=== PATIENT | female | born 1995 | race African-American/Black ===

== ENCOUNTER 2018-01-17 00:46 | Inpatient (IN) | payer MEDICAID ==
[2018-01-17] MEDS ORDERED: Sodium Chloride 0.9% 2.5 ML Syringe FLUSH PRN (01:22)
[2018-01-17] MEDS ORDERED: Carboprost Tromethamine 250 MCG/1 ML Amp IM PRN (01:22)
[2018-01-17] MEDS ORDERED: Tranexamic Acid 1,000 MG in Sodium Chloride 0.9% 100 ML IV PRN (01:22)
[2018-01-17] MEDS ORDERED: Water For Irrigation,Sterile 1,000 ML Container IRR PRN (01:22)
[2018-01-17] MEDS ORDERED: Nalbuphine 10 MG/1 ML Vial IVPUSH PRN ×2 (01:22→18:59)
[2018-01-17] MEDS ORDERED: Misoprostol 25 MCG (1/4 of 100 MCG) Tab VAG PRN (01:22)
[2018-01-17] MEDS ORDERED: Lidocaine 1% 50 ML MDV INJECT PRN (01:22)
[2018-01-17] MEDS ORDERED: Sodium Chloride 0.9% 10 ML Syringe FLUSH PRN (01:22)
[2018-01-17] MEDS ORDERED: Butorphanol 1 MG/ML SDV IVPUSH PRN (01:22)
[2018-01-17] MEDS ORDERED: Misoprostol 200 MCG Tab PO PRN (01:22)
[2018-01-17] MEDS ORDERED: Terbutaline 1 MG/ML SDV SUBCUT PRN (01:22)
[2018-01-17] MEDS ORDERED: Methylergonovine 0.2 MG/1 ML Amp IM PRN (01:22)
[2018-01-17] MEDS ORDERED: Misoprostol 25 MCG (1/4 of 100 MCG) Tab VAG SCH (01:30)
[2018-01-17] MEDS ORDERED: Oxytocin/0.9 % Sodium Chloride 30 UNIT/500 ML BAG IV SCH ×2 (01:30)
[2018-01-17] MEDS: Lactated Ringers 1,000 ML IV SCH ×3 (07:03→12:00)
[2018-01-17] MEDS ORDERED: Ropivacaine 0.2% 2 MG/ML 20 ML SDV ONE (09:36)
[2018-01-17 09:45] LABS: CHLORIDE,CL 106 mmol/L (98-107); SODIUM,NA 138 mmol/L (136-145)
--- NOTE | 2018-01-17 10:06 | PCM.PREANE ---
Preanesthetic Assessment - Procedure Proposed Procedure: labor epidural induction polyhydramnios - Anesthesia/Transfusion/Family Hx Anesthesia History: No Prior Anesthesia Family History of Anesthesia Reaction: No - Review of Systems Other: Reports: None - Physical Assessment Height: 5 ft 4 in Weight: 104.78 kg ASA Class: 2 Mental Status: Alert & Oriented x3 Airway Class: Mallampati = 1 Dentition: Reports: Normal Dentition Thyro-Mental Finger Breadths: 3 Mouth Opening Finger Breadths: 3 ROM/Head Extension: Full - Lab Values: Laboratory Last Values WBC 10.63 K/uL (4.0-11.0) 01/17/18 09:10 RBC 4.48 M/uL (4.30-5.90) 01/17/18 09:10 Hgb 11.5 g/dL (12.0-16.0) L 01/17/18 09:10 Hct 35.4 % (36.0-46.0) L 01/17/18 09:10 MCV 79.0 fL (80.0-98.0) L 01/17/18 09:10 MCH 25.7 pg (27.0-32.0) L 01/17/18 09:10 MCHC 32.5 g/dL (31.0-37.0) 01/17/18 09:10 RDW Std Deviation 46.5 fl (28.0-62.0) 01/17/18 09:10 RDW Coeff of Nelson 16 % (11.0-15.0) H 01/17/18 09:10 Plt Count 217 K/uL (150-400) 01/17/18 09:10 MPV 10.90 fL (7.40-12.00) 01/17/18 09:10 Neut % (Auto) 69.4 % (48.0-80.0) 01/17/18 09:10 Lymph % (Auto) 20.7 % (16.0-40.0) 01/17/18 09:10 [place] % (Auto) 9.5 % (0.0-15.0) 01/17/18 09:10 Eos % (Auto) 0.3 % (0.0-7.0) 01/17/18 09:10 Baso % (Auto) 0.1 % (0.0-1.5) 01/17/18 09:10 Neut # (Auto) 7.4 K/uL (1.4-5.7) H 01/17/18 09:10 Lymph # (Auto) 2.2 K/uL (0.6-2.4) 01/17/18 09:10 [place] # (Auto) 1.0 K/uL (0.0-0.8) H 01/17/18 09:10 Eos # (Auto) 0.0 K/uL (0.0-0.7) 01/17/18 09:10 Baso # (Auto) 0.0 K/uL (0.0-0.1) 01/17/18 09:10 Nucleated RBC % 0.0 /100WBC 01/17/18 09:10 Nucleated RBCs # 0 K/uL 01/17/18 09:10 Sodium 138 mmol/L (136-145) 01/17/18 09:10 Potassium 4.1 mmol/L (3.5-5.1) 01/17/18 09:10 Chloride 106 mmol/L (98-107) 01/17/18 09:10 Carbon Dioxide 22.5 mmol/L (21.0-32.0) 01/17/18 09:10 BUN 8 mg/dL (7.0-18.0) 01/17/18 09:10 Creatinine 0.6 mg/dL (0.6-1.0) 01/17/18 09:10 Est Cr Clr Drug Dosing 127.00 mL/min 01/17/18 09:10 Estimated GFR (MDRD) > 60.0 ml/min 01/17/18 09:10 Glucose 77 mg/dL (74-106) 01/17/18 09:10 Uric Acid 6.0 mg/dL (2.6-7.2) 01/17/18 09:10 Calcium 8.6 mg/dL (8.5-10.1) 01/17/18 09:10 Total Bilirubin 0.3 mg/dL (0.2-1.0) 01/17/18 09:10 AST 25 IU/L (15-37) 01/17/18 09:10 ALT 27 IU/L (14-63) 01/17/18 09:10 Alkaline Phosphatase 111 U/L (46-116) 01/17/18 09:10 Total Protein 6.0 g/dL (6.4-8.2) L 01/17/18 09:10 Albumin 2.5 g/dL (3.4-5.0) L 01/17/18 09:10 Globulin 3.5 g/dL (2.0-3.5) 01/17/18 09:10 Albumin/Globulin Ratio 0.7 (1.3-2.8) L 01/17/18 09:10 Urine Color DARK YELLOW 01/17/18 08:05 Urine Appearance SLT CLOUDY 01/17/18 08:05 Urine pH 6.5 (5.0-8.0) 01/17/18 08:05 Ur Specific [place] 1.025 (1.001-1.035) 01/17/18 08:05 Urine Protein 100 mg/dL (NEGATIVE) 01/17/18 08:05 Urine Glucose (UA) NEGATIVE mg/dL (NEGATIVE) 01/17/18 08:05 Urine Ketones NEGATIVE mg/dL (NEGATIVE) 01/17/18 08:05 Urine Occult Blood MODERATE (NEGATIVE) 01/17/18 08:05 Urine Nitrite NEGATIVE (NEGATIVE) 01/17/18 08:05 Urine Bilirubin NEGATIVE (NEGATIVE) 01/17/18 08:05 Urine Urobilinogen 0.2 EU/dL (<2.0) 01/17/18 08:05 Ur Leukocyte Esterase NEGATIVE (NEGATIVE) 01/17/18 08:05 Urine RBC 14-16 (0-2/HPF) 01/17/18 08:05 Urine WBC 3-6 (0-5/HPF) 01/17/18 08:05 Ur Epithelial Cells FEW (NONE-FEW) 01/17/18 08:05 Urine Bacteria FEW (NEGATIVE) 01/17/18 08:05 Blood Type O POSITIVE 01/17/18 01:53 Antibody Screen NEGATIVE 01/17/18 01:53 - Allergies Allergies/Adverse Reactions: Allergies Allergy/AdvReac Type Severity Reaction Status Date / Time No Known Allergies Allergy Verified 01/17/18 01:17 - Blood Blood Available: Yes Product(s) Available: PRBC - Acknowledgements Anesthesia Type Planned: Epidural Pt an Appropriate Candidate for the Planned Anesthesia: Yes Alternatives and Risks of Anesthesia Discussed w Pt/Guardian: Yes Pt/Guardian Understands and Agrees with Anesthesia Plan: Yes PreAnesthesia Questionnaire - Past Health History Medical/Surgical History: Denies Medical/Surgical History 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: - SUBSTANCE USE Smoking Status *Q: Never Smoker Second Hand Smoke Exposure: No Recreational Drug Use History: No - CURRENT (IN HOUSE) MEDS Current Meds: Current Medications Butorphanol Tartrate (Stadol) 1 mg IVPUSH Q1H PRN PRN Reason: Pain Last Admin: 01/17/18 07:18 Dose: 1 mg Carboprost Tromethamine (Hemabate Ds) 250 mcg IM ASDIRECTED PRN PRN Reason: Post Hemorrhage Lactated Ringer's (Ringers, Lactated) 1,000 mls @ 150 mls/hr IV ASDIRECTED ZOEY Last Admin: 01/17/18 07:03 Dose: 150 mls/hr Oxytocin/Sodium Chloride (Oxytocin 30 Unit/500 Ml-Ns) 30 unit in 500 mls @ 999 mls/hr IV TITRATE ZOEY Oxytocin/Sodium Chloride (Oxytocin 30 Unit/500 Ml-Ns) 30 unit in 500 mls @ 2 mls/hr IV TITRATE ZOEY; Protocol Last Admin: 01/17/18 07:03 Dose: 2 munits/min, 2 mls/hr Tranexamic Acid 1,000 mg/ (Sodium Chloride) 110 mls @ 660 mls/hr IV ONETIME PRN PRN Reason: Bleeding Lidocaine HCl (Xylocaine 1%) 50 ml INJECT .ONCE PRN PRN Reason: Laceration repair Methylergonovine Maleate (Methergine) 0.2 mg IM ASDIRECTED PRN PRN Reason: Post Hemorrhage Misoprostol (Cytotec) 200 mcg PO .ONCE PRN PRN Reason: Post Hemorrhage Misoprostol (Cytotec) 25 mcg VAG .ONCE ZOEY Misoprostol (Cytotec) 25 mcg VAG Q4H PRN PRN Reason: Cervical Ripening Last Admin: 01/17/18 02:17 Dose: 25 mcg Nalbuphine HCl (Nubain) 10 mg IVPUSH Q1H PRN PRN Reason: Pain (severe 7-10) Sodium Chloride (Saline Flush) 10 ml FLUSH ASDIRECTED PRN PRN Reason: Keep Vein Open Sodium Chloride (Saline Flush) 2.5 ml FLUSH ASDIRECTED PRN PRN Reason: Keep Vein Open Sterile Water (Sterile Water For Irrigation) 1,000 ml IRR ASDIRECTED PRN PRN Reason: delivery Terbutaline Sulfate (Brethine) 0.25 mg SUBCUT ASDIRECTED PRN PRN Reason: Tacysystole Discontinued Medications Fentanyl/Bupivacaine HCl (Qtzlhoah-Evaas-Nx 2 Mcg/Ml-0.125%) Confirm Administered Dose 100 mls @ as directed EP .STK-MED ONE Stop: 01/17/18 09:37 Ropivacaine (Naropin 0.2%) Confirm Administered Dose 20 ml .ROUTE .STK-MED ONE Stop: 01/17/18 09:37
[2018-01-17] MEDS ORDERED: Bupivacaine 0.5% 10 ML SDV ONE ×2 (16:45→17:59)
[2018-01-17] MEDS ORDERED: ceFAZolin 2 GM in Premix Bag 1 BAG IV ONE (17:46)
[2018-01-17] MEDS ORDERED: Citric Acid/Sodium Citrate Solution 30 ML Cup PO SCH (18:00)
[2018-01-17] MEDS ORDERED: Morphine PF 1 MG/ML Amp ONE (18:22)
[2018-01-17] MEDS ORDERED: Oxytocin 10 Units/1 ML SDV ONE ×2 (18:23→19:17)
[2018-01-17] MEDS ORDERED: Midazolam 1 MG/ML 2 ML SDV ONE (18:23)
[2018-01-17] MEDS ORDERED: fentaNYL 100 MCG/2 ML SDV ONE ×2 (18:24→19:01)
[2018-01-17] MEDS ORDERED: Propofol 200 MG/20 ML SDV ONE (18:40)
[2018-01-17] MEDS ORDERED: diphenhydrAMINE 50 MG/ML SDV IVPUSH PRN ×2 (18:59→20:29)
[2018-01-17] MEDS ORDERED: Naloxone 0.4 MG/ML Syringe IVPUSH PRN (18:59)
[2018-01-17] MEDS ORDERED: Acetaminophen/oxyCODONE 325-5 MG Tab PO PRN ×3 (19:00→20:29)
[2018-01-17] MEDS ORDERED: fentaNYL 100 MCG/2 ML SDV IVPUSH PRN (19:00)
[2018-01-17] MEDS ORDERED: Ondansetron 4 MG/2 ML SDV ONE (19:31)
--- NOTE | 2018-01-17 20:17 | PCM.POSTAN ---
POST ANESTHESIA ASSESSMENT - MENTAL STATUS Mental Status: Alert, Oriented - RESPIRATORY Respiratory Status: Respiratory Rate WNL, Airway Patent, O2 Saturation Stable - CARDIOVASCULAR CV Status: Pulse Rate WNL, Blood Pressure Stable - GASTROINTESTINAL GI Status: No Symptoms - PAIN Pain Score: 0 - POST OP HYDRATION Hydration Status: Adequate & Stable
[2018-01-17] MEDS ORDERED: Bisacodyl 10 MG Supp RECTAL PRN (20:29)
[2018-01-17] MEDS ORDERED: Lanolin 100% Cream 7 GM Tube TOP PRN (20:29)
[2018-01-17] MEDS ORDERED: Ondansetron 4 MG/2 ML SDV IV PRN (20:29)
[2018-01-17] MEDS ORDERED: Lactated Ringers 1,000 ML IV SCH (20:30)
--- NOTE | 2018-01-17 20:39 | PCM.OPNOTE ---
- General Post-Op/Procedure Note Date of Surgery/Procedure: 01/17/18 Operative Procedure(s): Primary Lower transverse Findings: Live male delivered at 636pm , 8/9 , weigt 3360g Pre Op Diagnosis: 22 yo @ 39w0d for Primary for Cat 2FHT Post-Op Diagnosis: Same Anesthesia Technique: Epidural Primary Surgeon: Amelie Rodriguez Secondary Surgeon: Otilia Cifuentes Fluid Replacement, Intraop: 2,500 Output, Urine Amount: 150 EBL in mLs: 650 Complications: None Condition: Good Free Text/Narrative:: Live male delivered at 6.36pm , weight: 3360g , 8/9 Normal uterus , tubes and ovaries
[2018-01-17] MEDS: Ketorolac 30 MG/ML SDV IVPUSH SCH (20:49)
--- NOTE | 2018-01-18 06:59 | PCM.PNPP ---
<Otilia Cifuentes - Last Filed: 01/18/18 08:59> - General Info Date of Service: 01/18/18 Admission Dx/Problem (Free Text): section for category 2 FHT Subjective Update: 22 year old POD1 from for category 2 FHT. Patient sat at edge of bed last night, felt a little dizzy. Has not been up since. Has not had meza out yet. Pain well-controlled. Functional Status: Reports: Pain Controlled, Tolerating Diet, Urinating - Review of Systems General: Denies: Fever, Chills HEENT: Denies: Headaches, Visual Changes Pulmonary: Denies: Shortness of Breath, Pleuritic Chest Pain, Cough Cardiovascular: Denies: Chest Pain, Edema Gastrointestinal: Denies: Constipation, Diarrhea, Nausea, Vomiting Genitourinary: Denies: Dysuria, Frequency, Burning Neurological: Denies: Dizziness, Headache - General Info Date of Service: 01/18/18 - Patient Data Vital Signs - Most Recent: Last Vital Signs Temp Pulse 85 01/18/18 06:00 Resp 17 01/18/18 06:00 BP 110/53 L 01/18/18 05:00 Pulse Ox 95 01/18/18 06:00 Weight - Most Recent: 104.78 kg I&O - Last 24 Hours: Intake & Output 01/17/18 01/17/18 01/18/18 14:59 22:59 06:59 Intake Total 2500 Output Total 150 Balance 2350 Lab Results - Last 24 Hours: Laboratory Results - last 24 hr 01/17/18 01/17/18 01/17/18 Range/Units 08:05 09:10 09:10 WBC 10.63 (4.0-11.0) K/uL RBC 4.48 (4.30-5.90) M/uL Hgb 11.5 L (12.0-16.0) g/dL Hct 35.4 L (36.0-46.0) % MCV 79.0 L (80.0-98.0) fL MCH 25.7 L (27.0-32.0) pg MCHC 32.5 (31.0-37.0) g/dL RDW Std Deviation 46.5 (28.0-62.0) fl RDW Coeff of Nelson 16 H (11.0-15.0) % Plt Count 217 (150-400) K/uL MPV 10.90 (7.40-12.00) fL Neut % (Auto) 69.4 (48.0-80.0) % Lymph % (Auto) 20.7 (16.0-40.0) % [place] % (Auto) 9.5 (0.0-15.0) % Eos % (Auto) 0.3 (0.0-7.0) % Baso % (Auto) 0.1 (0.0-1.5) % Neut # (Auto) 7.4 H (1.4-5.7) K/uL Lymph # (Auto) 2.2 (0.6-2.4) K/uL [place] # (Auto) 1.0 H (0.0-0.8) K/uL Eos # (Auto) 0.0 (0.0-0.7) K/uL Baso # (Auto) 0.0 (0.0-0.1) K/uL Nucleated RBC % 0.0 /100WBC Nucleated RBCs # 0 K/uL Sodium 138 (136-145) mmol/L Potassium 4.1 (3.5-5.1) mmol/L Chloride 106 (98-107) mmol/L Carbon Dioxide 22.5 (21.0-32.0) mmol/L BUN 8 (7.0-18.0) mg/dL Creatinine 0.6 (0.6-1.0) mg/dL Est Cr Clr Drug Dosing 127.00 mL/min Estimated GFR (MDRD) > 60.0 ml/min Glucose 77 (74-106) mg/dL Uric Acid 6.0 (2.6-7.2) mg/dL Calcium 8.6 (8.5-10.1) mg/dL Total Bilirubin 0.3 (0.2-1.0) mg/dL AST 25 (15-37) IU/L ALT 27 (14-63) IU/L Alkaline Phosphatase 111 (46-116) U/L Total Protein 6.0 L (6.4-8.2) g/dL Albumin 2.5 L (3.4-5.0) g/dL Globulin 3.5 (2.0-3.5) g/dL Albumin/Globulin Ratio 0.7 L (1.3-2.8) Urine Color DARK YELLOW Urine Appearance SLT CLOUDY Urine pH 6.5 (5.0-8.0) Ur Specific [place] 1.025 (1.001-1.035) Urine Protein 100 (NEGATIVE) mg/dL Urine Glucose (UA) NEGATIVE (NEGATIVE) mg/dL Urine Ketones NEGATIVE (NEGATIVE) mg/dL Urine Occult Blood MODERATE (NEGATIVE) Urine Nitrite NEGATIVE (NEGATIVE) Urine Bilirubin NEGATIVE (NEGATIVE) Urine Urobilinogen 0.2 (<2.0) EU/dL Ur Leukocyte Esterase NEGATIVE (NEGATIVE) Urine RBC 14-16 (0-2/HPF) Urine WBC 3-6 (0-5/HPF) Ur Epithelial Cells FEW (NONE-FEW) Urine Bacteria FEW (NEGATIVE) 01/18/18 Range/Units 05:25 WBC (4.0-11.0) K/uL RBC (4.30-5.90) M/uL Hgb 9.8 L (12.0-16.0) g/dL Hct 30.2 L (36.0-46.0) % MCV (80.0-98.0) fL MCH (27.0-32.0) pg MCHC (31.0-37.0) g/dL RDW Std Deviation (28.0-62.0) fl RDW Coeff of Nelson (11.0-15.0) % Plt Count (150-400) K/uL MPV (7.40-12.00) fL Neut % (Auto) (48.0-80.0) % Lymph % (Auto) (16.0-40.0) % [place] % (Auto) (0.0-15.0) % Eos % (Auto) (0.0-7.0) % Baso % (Auto) (0.0-1.5) % Neut # (Auto) (1.4-5.7) K/uL Lymph # (Auto) (0.6-2.4) K/uL [place] # (Auto) (0.0-0.8) K/uL Eos # (Auto) (0.0-0.7) K/uL Baso # (Auto) (0.0-0.1) K/uL Nucleated RBC % /100WBC Nucleated RBCs # K/uL Sodium (136-145) mmol/L Potassium (3.5-5.1) mmol/L Chloride (98-107) mmol/L Carbon Dioxide (21.0-32.0) mmol/L BUN (7.0-18.0) mg/dL Creatinine (0.6-1.0) mg/dL Est Cr Clr Drug Dosing mL/min Estimated GFR (MDRD) ml/min Glucose (74-106) mg/dL Uric Acid (2.6-7.2) mg/dL Calcium (8.5-10.1) mg/dL Total Bilirubin (0.2-1.0) mg/dL AST (15-37) IU/L ALT (14-63) IU/L Alkaline Phosphatase (46-116) U/L Total Protein (6.4-8.2) g/dL Albumin (3.4-5.0) g/dL Globulin (2.0-3.5) g/dL Albumin/Globulin Ratio (1.3-2.8) Urine Color Urine Appearance Urine pH (5.0-8.0) Ur Specific [place] (1.001-1.035) Urine Protein (NEGATIVE) mg/dL Urine Glucose (UA) (NEGATIVE) mg/dL Urine Ketones (NEGATIVE) mg/dL Urine Occult Blood (NEGATIVE) Urine Nitrite (NEGATIVE) Urine Bilirubin (NEGATIVE) Urine Urobilinogen (<2.0) EU/dL Ur Leukocyte Esterase (NEGATIVE) Urine RBC (0-2/HPF) Urine WBC (0-5/HPF) Ur Epithelial Cells (NONE-FEW) Urine Bacteria (NEGATIVE) Med Orders - Current: Current Medications Bisacodyl (Dulcolax) 10 mg RECTAL .ONCE PRN PRN Reason: Constipation Carboprost Tromethamine (Hemabate Ds) 250 mcg IM ASDIRECTED PRN PRN Reason: Post Hemorrhage Diphenhydramine HCl (Benadryl) 25 mg IVPUSH Q4H PRN PRN Reason: Itching Stop: 01/18/18 18:59 Diphenhydramine HCl (Benadryl) 25 mg IVPUSH Q6H PRN PRN Reason: Itching or Nausea Docusate Sodium (Colace) 100 mg PO BID ZOEY Emollient Ointment (Lansinoh Hpa) 0 gm TOP ASDIRECTED PRN PRN Reason: Sore Nipples Fentanyl (Sublimaze) 25 - 50 mcg IVPUSH Q30M PRN PRN Reason: Pain Lactated Ringer's (Ringers, Lactated) 1,000 mls @ 150 mls/hr IV ASDIRECTED [facility] Last Admin: 01/17/18 12:00 Dose: 150 mls/hr Oxytocin/Sodium Chloride (Oxytocin 30 Unit/500 Ml-Ns) 30 unit in 500 mls @ 999 mls/hr IV TITRATE ZOEY Oxytocin/Sodium Chloride (Oxytocin 30 Unit/500 Ml-Ns) 30 unit in 500 mls @ 2 mls/hr IV TITRATE ZOEY; Protocol Last Titration: 01/17/18 14:16 Dose: 0 munits/min, 0 mls/hr Tranexamic Acid 1,000 mg/ (Sodium Chloride) 110 mls @ 660 mls/hr IV ONETIME PRN PRN Reason: Bleeding Lactated Ringer's (Ringers, Lactated) 1,000 mls @ 125 mls/hr IV ASDIRECTED [facility] Last Admin: 01/17/18 21:17 Dose: 125 mls/hr Ibuprofen (Motrin) 800 mg PO Q8H PRN PRN Reason: mild pain or fever Ketorolac Tromethamine (Toradol) 30 mg IVPUSH Q6H ZOEY Stop: 01/18/18 20:31 Last Admin: 01/17/18 20:49 Dose: 30 mg Lidocaine HCl (Xylocaine 1%) 50 ml INJECT .ONCE PRN PRN Reason: Laceration repair Methylergonovine Maleate (Methergine) 0.2 mg IM ASDIRECTED PRN PRN Reason: Post Hemorrhage Misoprostol (Cytotec) 200 mcg PO .ONCE PRN PRN Reason: Post Hemorrhage Misoprostol (Cytotec) 25 mcg VAG .ONCE ZOEY Misoprostol (Cytotec) 25 mcg VAG Q4H PRN PRN Reason: Cervical Ripening Last Admin: 01/17/18 02:17 Dose: 25 mcg Nalbuphine HCl (Nubain) 5 mg IVPUSH Q3H PRN PRN Reason: Pruritis Stop: 01/18/18 18:59 Naloxone HCl (Narcan) 0.1 mg IVPUSH ONETIME PRN PRN Reason: Other Stop: 01/18/18 19:00 Ondansetron HCl (Zofran) 4 mg IV Q4H PRN PRN Reason: Nausea/Vomiting Oxycodone/Acetaminophen (Percocet 325-5 Mg) 1 - 2 tab PO Q6H PRN PRN Reason: Pain Stop: 01/19/18 14:00 Oxycodone/Acetaminophen (Percocet 325-5 Mg) 1 tab PO Q4H PRN PRN Reason: Pain (moderate 4-6) Oxycodone/Acetaminophen (Percocet 325-5 Mg) 2 tab PO Q4H PRN PRN Reason: Pain (moderate 4-6) Sodium Chloride (Saline Flush) 10 ml FLUSH ASDIRECTED PRN PRN Reason: Keep Vein Open Sodium Chloride (Saline Flush) 2.5 ml FLUSH ASDIRECTED PRN PRN Reason: Keep Vein Open Sterile Water (Sterile Water For Irrigation) 1,000 ml IRR ASDIRECTED PRN PRN Reason: delivery Terbutaline Sulfate (Brethine) 0.25 mg SUBCUT ASDIRECTED PRN PRN Reason: Tacysystole Discontinued Medications Bupivacaine HCl (Sensorcaine-Mpf 0.5%) Confirm Administered Dose 10 ml .ROUTE .STK-MED ONE Stop: 01/17/18 16:46 Bupivacaine HCl (Sensorcaine-Mpf 0.5%) Confirm Administered Dose 20 ml .ROUTE .STK-MED ONE Stop: 01/17/18 18:00 Butorphanol Tartrate (Stadol) 1 mg IVPUSH Q1H PRN PRN Reason: Pain Last Admin: 01/17/18 07:18 Dose: 1 mg Citric Acid/Sodium Citrate (Bicitra Solution) 30 ml PO .ONCE ZOEY Fentanyl (Sublimaze) Confirm Administered Dose 100 mcg .ROUTE .STK-MED ONE Stop: 01/17/18 18:25 Fentanyl (Sublimaze) Confirm Administered Dose 100 mcg .ROUTE .STK-MED ONE Stop: 01/17/18 19:02 Fentanyl/Bupivacaine HCl (Spteztfe-Uekwh-Tf 2 Mcg/Ml-0.125%) Confirm Administered Dose 100 mls @ as directed EP .STK-MED ONE Stop: 01/17/18 09:37 Fentanyl/Bupivacaine HCl (Pixkctgj-Otkks-Em 2 Mcg/Ml-0.125%) Confirm Administered Dose 100 mls @ as directed EP .STK-MED ONE Stop: 01/17/18 15:16 Cefazolin Sodium/Dextrose 2 gm (/ Premix) 50 mls @ 100 mls/hr IV ONETIME ONE Stop: 01/17/18 18:15 Acetaminophen (Ofirmev) Confirm Administered Dose 100 mls @ as directed IV .STK- MED ONE Stop: 01/17/18 19:09 Midazolam HCl (Versed 1 Mg/Ml) Confirm Administered Dose 2 mg .ROUTE .STK-MED ONE Stop: 01/17/18 18:24 Morphine Sulfate (Duramorph Pf) Confirm Administered Dose 1 mg .ROUTE .STK-MED ONE Stop: 01/17/18 18:23 Nalbuphine HCl (Nubain) 10 mg IVPUSH Q1H PRN PRN Reason: Pain (severe 7-10) Ondansetron HCl (Zofran) Confirm Administered Dose 4 mg .ROUTE .STK-MED ONE Stop: 01/17/18 19:32 Oxytocin (Pitocin) Confirm Administered Dose 30 unit .ROUTE .STK-MED ONE Stop: 01/17/18 18:24 Oxytocin (Pitocin) Confirm Administered Dose 20 unit .ROUTE .STK-MED ONE Stop: 01/17/18 19:18 Propofol (Diprivan 20 Ml) Confirm Administered Dose 200 mg .ROUTE .STK-MED ONE Stop: 01/17/18 18:41 Ropivacaine (Naropin 0.2%) Confirm Administered Dose 20 ml .ROUTE .STK-MED ONE Stop: 01/17/18 09:37 - Interaction Disposition, : [place] at Bedside Interaction: Not Interacting (Patient sleeping) Infant Feeding: Bottle Fed Support Person: Significant Other - Recovery Exam Fundal Tone: Firm Fundal Level: At Umbilicus Fundal Placement: Midline Lochia Amount: Small Lochia Color: Rubra/Red Bladder Status: Indwelling Catheter in Place Urinary Elimination: Indwelling Catheter - Exam General: Alert, Oriented, No Acute Distress HEENT: Pupils Equal, Pupils Reactive Lungs: Clear to Auscultation, Normal Respiratory Effort. No: Crackles, Wheezing Cardiovascular: Regular Rate, Regular Rhythm, No Murmurs GI/Abdominal Exam: Normal Bowel Sounds, Soft, No Distention. No: Guarding, Rigid, Rebound Extremities: Normal Inspection, Normal Range of Motion, Non-Tender, No Pedal Edema, Normal Capillary Refill Skin: Warm, Dry, Intact Wound/Incisions: Healing Well, Dressing Dry and Intact Neurological: No New Focal Deficit Psy/Mental Status: Alert, Normal Affect, Normal Mood - Problem List Review Problem List Initiated/Reviewed/Updated: Yes - Assessment Assessment:: 22 year old POD1 from section for category 2 FHT. Recovering appropriately. - Plan Plan:: Continue routine postop cares. Likely discharge tomorrow. <Amelie Rodriguez - Last Filed: 01/18/18 11:23> - General Info Admission Dx/Problem (Free Text): Primary for Cat 2FHT Subjective Update: Patient seen at bedside , she does not want to breastfeed , she is not ambulating ( she is laying in bed). she has good pain control. Meza in place , U/O is adequate - Patient Data Vital Signs - Most Recent: Last Vital Signs Temp 37.4 C 01/18/18 08:00 Pulse 97 01/18/18 08:00 Resp 18 01/18/18 08:00 BP 132/63 01/18/18 08:00 Pulse Ox 100 01/18/18 08:00 I&O - Last 24 Hours: Intake & Output 01/17/18 01/18/18 01/18/18 22:59 06:59 14:59 Intake Total 2500 600 Output Total 150 575 Balance 2350 25 Lab Results - Last 24 Hours: Laboratory Results - last 24 hr 01/18/18 Range/Units 05:25 Hgb 9.8 L (12.0-16.0) g/dL Hct 30.2 L (36.0-46.0) % Med Orders - Current: Current Medications Bisacodyl (Dulcolax) 10 mg RECTAL .ONCE PRN PRN Reason: Constipation Carboprost Tromethamine (Hemabate Ds) 250 mcg IM ASDIRECTED PRN PRN Reason: Post Hemorrhage Diphenhydramine HCl (Benadryl) 25 mg IVPUSH Q4H PRN PRN Reason: Itching Stop: 01/18/18 18:59 Diphenhydramine HCl (Benadryl) 25 mg IVPUSH Q6H PRN PRN Reason: Itching or Nausea Docusate Sodium (Colace) 100 mg PO BID ZOEY Emollient Ointment (Lansinoh Hpa) 0 gm TOP ASDIRECTED PRN PRN Reason: Sore Nipples Fentanyl (Sublimaze) 25 - 50 mcg IVPUSH Q30M PRN PRN Reason: Pain Lactated Ringer's (Ringers, Lactated) 1,000 mls @ 150 mls/hr IV ASDIRECTED [facility] Last Admin: 01/17/18 12:00 Dose: 150 mls/hr Oxytocin/Sodium Chloride (Oxytocin 30 Unit/500 Ml-Ns) 30 unit in 500 mls @ 999 mls/hr IV TITRATE ZOEY Oxytocin/Sodium Chloride (Oxytocin 30 Unit/500 Ml-Ns) 30 unit in 500 mls @ 2 mls/hr IV TITRATE ZOEY; Protocol Last Titration: 01/17/18 14:16 Dose: 0 munits/min, 0 mls/hr Tranexamic Acid 1,000 mg/ (Sodium Chloride) 110 mls @ 660 mls/hr IV ONETIME PRN PRN Reason: Bleeding Lactated Ringer's (Ringers, Lactated) 1,000 mls @ 125 mls/hr IV ASDIRECTED [facility] Last Admin: 01/17/18 21:17 Dose: 125 mls/hr Ibuprofen (Motrin) 800 mg PO Q8H PRN PRN Reason: mild pain or fever Ketorolac Tromethamine (Toradol) 30 mg IVPUSH Q6H ZOEY Stop: 01/18/18 20:31 Last Admin: 01/18/18 09:47 Dose: 30 mg Lidocaine HCl (Xylocaine 1%) 50 ml INJECT .ONCE PRN PRN Reason: Laceration repair Methylergonovine Maleate (Methergine) 0.2 mg IM ASDIRECTED PRN PRN Reason: Post Hemorrhage Misoprostol (Cytotec) 200 mcg PO .ONCE PRN PRN Reason: Post Hemorrhage Misoprostol (Cytotec) 25 mcg VAG .ONCE ZOEY Misoprostol (Cytotec) 25 mcg VAG Q4H PRN PRN Reason: Cervical Ripening Last Admin: 01/17/18 02:17 Dose: 25 mcg Nalbuphine HCl (Nubain) 5 mg IVPUSH Q3H PRN PRN Reason: Pruritis Stop: 01/18/18 18:59 Naloxone HCl (Narcan) 0.1 mg IVPUSH ONETIME PRN PRN Reason: Other Stop: 01/18/18 19:00 Ondansetron HCl (Zofran) 4 mg IV Q4H PRN PRN Reason: Nausea/Vomiting Oxycodone/Acetaminophen (Percocet 325-5 Mg) 1 - 2 tab PO Q6H PRN PRN Reason: Pain Stop: 01/19/18 14:00 Oxycodone/Acetaminophen (Percocet 325-5 Mg) 1 tab PO Q4H PRN PRN Reason: Pain (moderate 4-6) Oxycodone/Acetaminophen (Percocet 325-5 Mg) 2 tab PO Q4H PRN PRN Reason: Pain (moderate 4-6) Sodium Chloride (Saline Flush) 10 ml FLUSH ASDIRECTED PRN PRN Reason: Keep Vein Open Sodium Chloride (Saline Flush) 2.5 ml FLUSH ASDIRECTED PRN PRN Reason: Keep Vein Open Sterile Water (Sterile Water For Irrigation) 1,000 ml IRR ASDIRECTED PRN PRN Reason: delivery Terbutaline Sulfate (Brethine) 0.25 mg SUBCUT ASDIRECTED PRN PRN Reason: Tacysystole Discontinued Medications Bupivacaine HCl (Sensorcaine-Mpf 0.5%) Confirm Administered Dose 10 ml .ROUTE .STK-MED ONE Stop: 01/17/18 16:46 Bupivacaine HCl (Sensorcaine-Mpf 0.5%) Confirm Administered Dose 20 ml .ROUTE .STK-MED ONE Stop: 01/17/18 18:00 Butorphanol Tartrate (Stadol) 1 mg IVPUSH Q1H PRN PRN Reason: Pain Last Admin: 01/17/18 07:18 Dose: 1 mg Citric Acid/Sodium Citrate (Bicitra Solution) 30 ml PO .ONCE ZOEY Fentanyl (Sublimaze) Confirm Administered Dose 100 mcg .ROUTE .STK-MED ONE Stop: 01/17/18 18:25 Fentanyl (Sublimaze) Confirm Administered Dose 100 mcg .ROUTE .STK-MED ONE Stop: 01/17/18 19:02 Fentanyl/Bupivacaine HCl (Owipvjfq-Jjmkq-Zn 2 Mcg/Ml-0.125%) Confirm Administered Dose 100 mls @ as directed EP .STK-MED ONE Stop: 01/17/18 09:37 Fentanyl/Bupivacaine HCl (Zdugyhuo-Braxc-Hj 2 Mcg/Ml-0.125%) Confirm Administered Dose 100 mls @ as directed EP .STK-MED ONE Stop: 01/17/18 15:16 Cefazolin Sodium/Dextrose 2 gm (/ Premix) 50 mls @ 100 mls/hr IV ONETIME ONE Stop: 01/17/18 18:15 Acetaminophen (Ofirmev) Confirm Administered Dose 100 mls @ as directed IV .STK- MED ONE Stop: 01/17/18 19:09 Midazolam HCl (Versed 1 Mg/Ml) Confirm Administered Dose 2 mg .ROUTE .STK-MED ONE Stop: 01/17/18 18:24 Morphine Sulfate (Duramorph Pf) Confirm Administered Dose 1 mg .ROUTE .STK-MED ONE Stop: 01/17/18 18:23 Nalbuphine HCl (Nubain) 10 mg IVPUSH Q1H PRN PRN Reason: Pain (severe 7-10) Ondansetron HCl (Zofran) Confirm Administered Dose 4 mg .ROUTE .STK-MED ONE Stop: 01/17/18 19:32 Oxytocin (Pitocin) Confirm Administered Dose 30 unit .ROUTE .STK-MED ONE Stop: 01/17/18 18:24 Oxytocin (Pitocin) Confirm Administered Dose 20 unit .ROUTE .STK-MED ONE Stop: 01/17/18 19:18 Propofol (Diprivan 20 Ml) Confirm Administered Dose 200 mg .ROUTE .STK-MED ONE Stop: 01/17/18 18:41 Ropivacaine (Naropin 0.2%) Confirm Administered Dose 20 ml .ROUTE .STK-MED ONE Stop: 01/17/18 09:37 - Problem List & Annotations (1) delivery delivered SNOMED Code(s): 956697872 Code(s): O82 - ENCOUNTER FOR DELIVERY WITHOUT INDICATION Status: Acute Current Visit: Yes - My Orders Last 24 Hours: My Active Orders 01/17/18 17:47 Patient Status [ADT] Routine Procedure Site Prep Instruct [RC] ASDIRECTED Verify Patient Consent Obtain [RC] ASDIRECTED Schedule Procedure [COMM] Per Unit Routine 01/17/18 17:50 Notify Provider Vital Signs [RC] PRN 01/17/18 20:29 Patient Status [ADT] Routine Ambulate [RC] PER UNIT ROUTINE Communication Order [RC] PER UNIT ROUTINE Communication Order [RC] PER UNIT ROUTINE Communication Order [RC] Per Unit Routine May Shower [RC] ASDIRECTED Notify Provider Intake and Out [RC] ASDIRECTED Notify Provider Vital Signs [RC] ASDIRECTED RT Incentive Spirometry [RC] Q2HWA Vital Signs [RC] PER UNIT ROUTINE Acetaminophen/oxyCODONE [Percocet 325-5 MG] 1 tab PO Q4H PRN Acetaminophen/oxyCODONE [Percocet 325-5 MG] 2 tab PO Q4H PRN Bisacodyl [Dulcolax] 10 mg RECTAL .ONCE PRN Lanolin [Lansinoh HPA] See Dose Instructions TOP ASDIRECTED PRN Ondansetron [Zofran] 4 mg IV Q4H PRN diphenhydrAMINE [Benadryl] 25 mg IVPUSH Q6H PRN Assess Lochia [WOMSER] Per Unit Routine Assess Uterine Involution [WOMSER] Per Unit Routine Breast Pump [WOMSER] Per Unit Routine Peripheral IV Discontinue [OM.PC] Routine Sequential Compression Device [OM.PC] Per Unit Routine Resuscitation Status Routine 01/17/18 20:30 Ketorolac [Toradol] 30 mg IVPUSH Q6H Lactated Ringers [Ringers, Lactated] 1,000 ml IV ASDIRECTED 01/17/18 21:00 Docusate Sodium [Colace] 100 mg PO BID 01/18/18 Breakfast Regular Diet [DIET] 01/19/18 03:00 Ibuprofen [Motrin] 800 mg PO Q8H PRN - Assessment Assessment:: 22 yo P1 s/p Primary LTCS , yet to ambulate properly , meza in place , Good pain control - Plan Plan:: Encourage patient to ambulate SCD in bed Regular diet D/C meza by noon Pain control as needed
--- NOTE | 2018-01-18 07:19 | PCM48HPAN ---
Post Anesthesia Note - EVALUATION WITHIN 48HRS OF ANESTHETIC Vital Signs in Normal Range: Yes Patient Participated in Evaluation: Yes Respiratory Function Stable: Yes Airway Patent: Yes Cardiovascular Function Stable: Yes Hydration Status Stable: Yes Pain Control Satisfactory: Yes Nausea and Vomiting Control Satisfactory: Yes Mental Status Recovered: Yes Resp Rate: 17
[2018-01-18] MEDS: Ketorolac 30 MG/ML SDV IVPUSH SCH ×5 (09:43→21:54)
[2018-01-18] MEDS: Docusate Sodium 100 MG Cap PO SCH ×3 (21:42→21:43)
[2018-01-19] MEDS ORDERED: Ibuprofen 800 MG Tab PO PRN (03:00)
--- NOTE | 2018-01-19 07:46 | PCM.PNPP ---
<Otilia Cifuentes - Last Filed: 01/19/18 08:25> - General Info Date of Service: 01/19/18 Admission Dx/Problem (Free Text): Primary for Cat 2FHT Subjective Update: 22 year old . Bottle feeding. Patient ambulated more yesterday and says this went well. Tolerating a general diet. Passing gas. Functional Status: Reports: Pain Controlled, Tolerating Diet, Ambulating, Urinating - Review of Systems General: Denies: Fever, Chills HEENT: Denies: Headaches, Visual Changes Pulmonary: Denies: Shortness of Breath, Pleuritic Chest Pain, Cough Cardiovascular: Denies: Chest Pain, Edema Gastrointestinal: Denies: Constipation, Diarrhea, Nausea, Vomiting Genitourinary: Denies: Dysuria, Frequency, Burning Musculoskeletal: Denies: Leg Pain Neurological: Denies: Dizziness, Headache - General Info Date of Service: 01/19/18 - Patient Data Vital Signs - Most Recent: Last Vital Signs Temp 36.2 C 01/19/18 03:00 Pulse 114 H 01/19/18 03:00 Resp 18 01/19/18 03:00 BP 113/74 01/19/18 03:00 Pulse Ox 96 01/19/18 03:00 Weight - Most Recent: 104.78 kg I&O - Last 24 Hours: Intake & Output 01/18/18 01/19/18 01/19/18 22:59 06:59 14:59 Intake Total 1800 Output Total 400 Balance 1400 Med Orders - Current: Current Medications Bisacodyl (Dulcolax) 10 mg RECTAL .ONCE PRN PRN Reason: Constipation Carboprost Tromethamine (Hemabate Ds) 250 mcg IM ASDIRECTED PRN PRN Reason: Post Hemorrhage Diphenhydramine HCl (Benadryl) 25 mg IVPUSH Q6H PRN PRN Reason: Itching or Nausea Docusate Sodium (Colace) 100 mg PO BID ZOEY Last Admin: 01/18/18 21:43 Dose: 100 mg Emollient Ointment (Lansinoh Hpa) 0 gm TOP ASDIRECTED PRN PRN Reason: Sore Nipples Fentanyl (Sublimaze) 25 - 50 mcg IVPUSH Q30M PRN PRN Reason: Pain Lactated Ringer's (Ringers, Lactated) 1,000 mls @ 150 mls/hr IV ASDIRECTED ZOEY Last Admin: 01/17/18 12:00 Dose: 150 mls/hr Oxytocin/Sodium Chloride (Oxytocin 30 Unit/500 Ml-Ns) 30 unit in 500 mls @ 999 mls/hr IV TITRATE ZOEY Oxytocin/Sodium Chloride (Oxytocin 30 Unit/500 Ml-Ns) 30 unit in 500 mls @ 2 mls/hr IV TITRATE ZOEY; Protocol Last Titration: 01/17/18 14:16 Dose: 0 munits/min, 0 mls/hr Tranexamic Acid 1,000 mg/ (Sodium Chloride) 110 mls @ 660 mls/hr IV ONETIME PRN PRN Reason: Bleeding Lactated Ringer's (Ringers, Lactated) 1,000 mls @ 125 mls/hr IV ASDIRECTED ZOEY Last Admin: 01/17/18 21:17 Dose: 125 mls/hr Ibuprofen (Motrin) 800 mg PO Q8H PRN PRN Reason: mild pain or fever Last Admin: 01/19/18 04:35 Dose: 800 mg Lidocaine HCl (Xylocaine 1%) 50 ml INJECT .ONCE PRN PRN Reason: Laceration repair Methylergonovine Maleate (Methergine) 0.2 mg IM ASDIRECTED PRN PRN Reason: Post Hemorrhage Misoprostol (Cytotec) 200 mcg PO .ONCE PRN PRN Reason: Post Hemorrhage Misoprostol (Cytotec) 25 mcg VAG .ONCE ZOEY Misoprostol (Cytotec) 25 mcg VAG Q4H PRN PRN Reason: Cervical Ripening Last Admin: 01/17/18 02:17 Dose: 25 mcg Ondansetron HCl (Zofran) 4 mg IV Q4H PRN PRN Reason: Nausea/Vomiting Oxycodone/Acetaminophen (Percocet 325-5 Mg) 1 - 2 tab PO Q6H PRN PRN Reason: Pain Stop: 01/19/18 14:00 Oxycodone/Acetaminophen (Percocet 325-5 Mg) 1 tab PO Q4H PRN PRN Reason: Pain (moderate 4-6) Oxycodone/Acetaminophen (Percocet 325-5 Mg) 2 tab PO Q4H PRN PRN Reason: Pain (moderate 4-6) Sodium Chloride (Saline Flush) 10 ml FLUSH ASDIRECTED PRN PRN Reason: Keep Vein Open Sodium Chloride (Saline Flush) 2.5 ml FLUSH ASDIRECTED PRN PRN Reason: Keep Vein Open Sterile Water (Sterile Water For Irrigation) 1,000 ml IRR ASDIRECTED PRN PRN Reason: delivery Terbutaline Sulfate (Brethine) 0.25 mg SUBCUT ASDIRECTED PRN PRN Reason: Tacysystole Discontinued Medications Bupivacaine HCl (Sensorcaine-Mpf 0.5%) Confirm Administered Dose 10 ml .ROUTE .STK-MED ONE Stop: 01/17/18 16:46 Last Admin: 01/18/18 21:52 Dose: Not Given Bupivacaine HCl (Sensorcaine-Mpf 0.5%) Confirm Administered Dose 20 ml .ROUTE .STK-MED ONE Stop: 01/17/18 18:00 Last Admin: 01/18/18 21:52 Dose: Not Given Butorphanol Tartrate (Stadol) 1 mg IVPUSH Q1H PRN PRN Reason: Pain Last Admin: 01/17/18 07:18 Dose: 1 mg Citric Acid/Sodium Citrate (Bicitra Solution) 30 ml PO .ONCE ZOEY Diphenhydramine HCl (Benadryl) 25 mg IVPUSH Q4H PRN PRN Reason: Itching Stop: 01/18/18 18:59 Fentanyl (Sublimaze) Confirm Administered Dose 100 mcg .ROUTE .STK-MED ONE Stop: 01/17/18 18:25 Fentanyl (Sublimaze) Confirm Administered Dose 100 mcg .ROUTE .STK-MED ONE Stop: 01/17/18 19:02 Fentanyl/Bupivacaine HCl (Jwocrvwy-Pimzg-Ac 2 Mcg/Ml-0.125%) Confirm Administered Dose 100 mls @ as directed EP .STK-MED ONE Stop: 01/17/18 09:37 Last Admin: 01/18/18 21:51 Dose: Not Given Fentanyl/Bupivacaine HCl (Tzuvfeqs-Iiylw-Aq 2 Mcg/Ml-0.125%) Confirm Administered Dose 100 mls @ as directed EP .STK-MED ONE Stop: 01/17/18 15:16 Last Admin: 01/18/18 21:51 Dose: Not Given Cefazolin Sodium/Dextrose 2 gm (/ Premix) 50 mls @ 100 mls/hr IV ONETIME ONE Stop: 01/17/18 18:15 Acetaminophen (Ofirmev) Confirm Administered Dose 100 mls @ as directed IV .STK- MED ONE Stop: 01/17/18 19:09 Ketorolac Tromethamine (Toradol) 30 mg IVPUSH Q6H ZOEY Stop: 01/18/18 20:31 Last Admin: 01/18/18 21:54 Dose: Not Given Midazolam HCl (Versed 1 Mg/Ml) Confirm Administered Dose 2 mg .ROUTE .STK-MED ONE Stop: 01/17/18 18:24 Morphine Sulfate (Duramorph Pf) Confirm Administered Dose 1 mg .ROUTE .STK-MED ONE Stop: 01/17/18 18:23 Nalbuphine HCl (Nubain) 10 mg IVPUSH Q1H PRN PRN Reason: Pain (severe 7-10) Nalbuphine HCl (Nubain) 5 mg IVPUSH Q3H PRN PRN Reason: Pruritis Stop: 01/18/18 18:59 Naloxone HCl (Narcan) 0.1 mg IVPUSH ONETIME PRN PRN Reason: Other Stop: 01/18/18 19:00 Ondansetron HCl (Zofran) Confirm Administered Dose 4 mg .ROUTE .STK-MED ONE Stop: 01/17/18 19:32 Oxytocin (Pitocin) Confirm Administered Dose 30 unit .ROUTE .STK-MED ONE Stop: 01/17/18 18:24 Oxytocin (Pitocin) Confirm Administered Dose 20 unit .ROUTE .STK-MED ONE Stop: 01/17/18 19:18 Propofol (Diprivan 20 Ml) Confirm Administered Dose 200 mg .ROUTE .STK-MED ONE Stop: 01/17/18 18:41 Ropivacaine (Naropin 0.2%) Confirm Administered Dose 20 ml .ROUTE .STK-MED ONE Stop: 01/17/18 09:37 Last Admin: 01/18/18 21:51 Dose: Not Given - Interaction Disposition, : in Room with Family Interaction: Holding Infant Infant Feeding: Bottle Fed Infant Support Person: Significant Other - Recovery Exam Fundal Tone: Firm Fundal Level: 2 Fingerbreadths Above Umbilicus Fundal Placement: Midline Lochia Amount: Scant Lochia Color: Rubra/Red Perineum Description: Intact, Minimal Bruising/Swelling Episiotomy/Laceration: None Bladder Status: Voiding Urinary Elimination: Voided - Exam General: Alert, Oriented, No Acute Distress HEENT: Pupils Equal, Pupils Reactive Lungs: Clear to Auscultation, Normal Respiratory Effort. No: Crackles, Wheezing Cardiovascular: Regular Rate, Regular Rhythm, No Murmurs GI/Abdominal Exam: Normal Bowel Sounds, Soft, No Distention. No: Guarding, Rigid, Rebound Extremities: Normal Inspection, Normal Range of Motion, Non-Tender, No Pedal Edema, Normal Capillary Refill Skin: Warm, Dry, Intact Wound/Incisions: Healing Well Neurological: No New Focal Deficit Psy/Mental Status: Alert, Normal Affect, Normal Mood - Problem List Review Problem List Initiated/Reviewed/Updated: Yes - Assessment Assessment:: 22 yo P1 s/p Primary LTCS. Ambulating, voiding, tolerating general diet. Pain well-controlled. Ready for discharge. - Plan Plan:: Discharge today Followup in clinic in 2 weeks for wound check and 6 weeks for routine visit Pain meds: percocet, ibuprofen <Amelie Rodriguez - Last Filed: 01/19/18 09:25> - Patient Data Vital Signs - Most Recent: Last Vital Signs Temp 36.7 C 01/19/18 08:00 Pulse 88 01/19/18 08:00 Resp 16 01/19/18 08:00 BP 128/79 01/19/18 08:00 Pulse Ox 97 01/19/18 08:00 I&O - Last 24 Hours: Intake & Output 01/18/18 01/19/18 01/19/18 22:59 06:59 14:59 Intake Total 1800 Output Total 400 Balance 1400 Med Orders - Current: Current Medications Bisacodyl (Dulcolax) 10 mg RECTAL .ONCE PRN PRN Reason: Constipation Carboprost Tromethamine (Hemabate Ds) 250 mcg IM ASDIRECTED PRN PRN Reason: Post Hemorrhage Diphenhydramine HCl (Benadryl) 25 mg IVPUSH Q6H PRN PRN Reason: Itching or Nausea Docusate Sodium (Colace) 100 mg PO BID ZOEY Last Admin: 01/18/18 21:43 Dose: 100 mg Emollient Ointment (Lansinoh Hpa) 0 gm TOP ASDIRECTED PRN PRN Reason: Sore Nipples Fentanyl (Sublimaze) 25 - 50 mcg IVPUSH Q30M PRN PRN Reason: Pain Lactated Ringer's (Ringers, Lactated) 1,000 mls @ 150 mls/hr IV ASDIRECTED ZOEY Last Admin: 01/17/18 12:00 Dose: 150 mls/hr Oxytocin/Sodium Chloride (Oxytocin 30 Unit/500 Ml-Ns) 30 unit in 500 mls @ 999 mls/hr IV TITRATE ZOEY Oxytocin/Sodium Chloride (Oxytocin 30 Unit/500 Ml-Ns) 30 unit in 500 mls @ 2 mls/hr IV TITRATE ZOEY; Protocol Last Titration: 01/17/18 14:16 Dose: 0 munits/min, 0 mls/hr Tranexamic Acid 1,000 mg/ (Sodium Chloride) 110 mls @ 660 mls/hr IV ONETIME PRN PRN Reason: Bleeding Lactated Ringer's (Ringers, Lactated) 1,000 mls @ 125 mls/hr IV ASDIRECTED ZOEY Last Admin: 01/17/18 21:17 Dose: 125 mls/hr Ibuprofen (Motrin) 800 mg PO Q8H PRN PRN Reason: mild pain or fever Last Admin: 01/19/18 04:35 Dose: 800 mg Lidocaine HCl (Xylocaine 1%) 50 ml INJECT .ONCE PRN PRN Reason: Laceration repair Methylergonovine Maleate (Methergine) 0.2 mg IM ASDIRECTED PRN PRN Reason: Post Hemorrhage Misoprostol (Cytotec) 200 mcg PO .ONCE PRN PRN Reason: Post Hemorrhage Misoprostol (Cytotec) 25 mcg VAG .ONCE ZOEY Misoprostol (Cytotec) 25 mcg VAG Q4H PRN PRN Reason: Cervical Ripening Last Admin: 01/17/18 02:17 Dose: 25 mcg Ondansetron HCl (Zofran) 4 mg IV Q4H PRN PRN Reason: Nausea/Vomiting Oxycodone/Acetaminophen (Percocet 325-5 Mg) 1 - 2 tab PO Q6H PRN PRN Reason: Pain Stop: 01/19/18 14:00 Oxycodone/Acetaminophen (Percocet 325-5 Mg) 1 tab PO Q4H PRN PRN Reason: Pain (moderate 4-6) Oxycodone/Acetaminophen (Percocet 325-5 Mg) 2 tab PO Q4H PRN PRN Reason: Pain (moderate 4-6) Sodium Chloride (Saline Flush) 10 ml FLUSH ASDIRECTED PRN PRN Reason: Keep Vein Open Sodium Chloride (Saline Flush) 2.5 ml FLUSH ASDIRECTED PRN PRN Reason: Keep Vein Open Sterile Water (Sterile Water For Irrigation) 1,000 ml IRR ASDIRECTED PRN PRN Reason: delivery Terbutaline Sulfate (Brethine) 0.25 mg SUBCUT ASDIRECTED PRN PRN Reason: Tacysystole Discontinued Medications Bupivacaine HCl (Sensorcaine-Mpf 0.5%) Confirm Administered Dose 10 ml .ROUTE .STK-MED ONE Stop: 01/17/18 16:46 Last Admin: 01/18/18 21:52 Dose: Not Given Bupivacaine HCl (Sensorcaine-Mpf 0.5%) Confirm Administered Dose 20 ml .ROUTE .STK-MED ONE Stop: 01/17/18 18:00 Last Admin: 01/18/18 21:52 Dose: Not Given Butorphanol Tartrate (Stadol) 1 mg IVPUSH Q1H PRN PRN Reason: Pain Last Admin: 01/17/18 07:18 Dose: 1 mg Citric Acid/Sodium Citrate (Bicitra Solution) 30 ml PO .ONCE ZOEY Diphenhydramine HCl (Benadryl) 25 mg IVPUSH Q4H PRN PRN Reason: Itching Stop: 01/18/18 18:59 Fentanyl (Sublimaze) Confirm Administered Dose 100 mcg .ROUTE .STK-MED ONE Stop: 01/17/18 18:25 Fentanyl (Sublimaze) Confirm Administered Dose 100 mcg .ROUTE .STK-MED ONE Stop: 01/17/18 19:02 Fentanyl/Bupivacaine HCl (Dyzckucx-Mbjbt-Wt 2 Mcg/Ml-0.125%) Confirm Administered Dose 100 mls @ as directed EP .STK-MED ONE Stop: 01/17/18 09:37 Last Admin: 01/18/18 21:51 Dose: Not Given Fentanyl/Bupivacaine HCl (Jrmypmld-Blokh-Tz 2 Mcg/Ml-0.125%) Confirm Administered Dose 100 mls @ as directed EP .STK-MED ONE Stop: 01/17/18 15:16 Last Admin: 01/18/18 21:51 Dose: Not Given Cefazolin Sodium/Dextrose 2 gm (/ Premix) 50 mls @ 100 mls/hr IV ONETIME ONE Stop: 01/17/18 18:15 Acetaminophen (Ofirmev) Confirm Administered Dose 100 mls @ as directed IV .STK- MED ONE Stop: 01/17/18 19:09 Ketorolac Tromethamine (Toradol) 30 mg IVPUSH Q6H ZOEY Stop: 01/18/18 20:31 Last Admin: 01/18/18 21:54 Dose: Not Given Midazolam HCl (Versed 1 Mg/Ml) Confirm Administered Dose 2 mg .ROUTE .STK-MED ONE Stop: 01/17/18 18:24 Morphine Sulfate (Duramorph Pf) Confirm Administered Dose 1 mg .ROUTE .STK-MED ONE Stop: 01/17/18 18:23 Nalbuphine HCl (Nubain) 10 mg IVPUSH Q1H PRN PRN Reason: Pain (severe 7-10) Nalbuphine HCl (Nubain) 5 mg IVPUSH Q3H PRN PRN Reason: Pruritis Stop: 01/18/18 18:59 Naloxone HCl (Narcan) 0.1 mg IVPUSH ONETIME PRN PRN Reason: Other Stop: 01/18/18 19:00 Ondansetron HCl (Zofran) Confirm Administered Dose 4 mg .ROUTE .STK-MED ONE Stop: 01/17/18 19:32 Oxytocin (Pitocin) Confirm Administered Dose 30 unit .ROUTE .STK-MED ONE Stop: 01/17/18 18:24 Oxytocin (Pitocin) Confirm Administered Dose 20 unit .ROUTE .STK-MED ONE Stop: 01/17/18 19:18 Propofol (Diprivan 20 Ml) Confirm Administered Dose 200 mg .ROUTE .STK-MED ONE Stop: 01/17/18 18:41 Ropivacaine (Naropin 0.2%) Confirm Administered Dose 20 ml .ROUTE .STK-MED ONE Stop: 01/17/18 09:37 Last Admin: 01/18/18 21:51 Dose: Not Given - Problem List & Annotations (1) delivery delivered SNOMED Code(s): 904306657 Code(s): O82 - ENCOUNTER FOR DELIVERY WITHOUT INDICATION Status: Acute Current Visit: Yes - My Orders Last 24 Hours: My Active Orders 01/19/18 03:00 Ibuprofen [Motrin] 800 mg PO Q8H PRN - Plan Plan:: Patient s/p Primary , she has met all post operative goals , she is ambulating voiding and tolerating regular diet. Discharge home , precautions given
--- NOTE | 2018-01-19 08:55 | OR ---
SURGEON: KENNA LEAL DATE OF PROCEDURE: 01/17/2018 PREOPERATIVE DIAGNOSES: A 22-year-old, 1, para 0, at 39 weeks 0 days for primary section secondary to category 2 heart tracing. POSTOPERATIVE DIAGNOSES: A 22-year-old, 1, para 0, at 39 weeks 0 days for primary section secondary to category 2 heart tracing. PROCEDURE: Primary lower transverse section. INTRAVENOUS FLUIDS: 1200. ESTIMATED BLOOD LOSS: 650 mL. URINE OUTPUT: 160 mL. FINDINGS: Live female delivered at 6:36 p.m., scores 8 and 9, weight 3360 g. BRIEF HISTORY: She is a 22-year-old, G1, P0, at 39 weeks 0 days. She was admitted for induction of labor secondary to polyhydramnios. She received 1 dose of Cytotec. She became 3, 50, -2. She was started on Pitocin, after which she was ruptured. On Pitocin, the patient had some late decels and variable decels. Intrauterine resuscitative measures was performed, and tracing was intermittently category 2 tracing. Pitocin was stopped, and tracing recovered, was restarted, and the patient was still 6/50/-2 and she was still having recurrent decelerations. At this point, the patient was advised for a primary section for category 2 heart tracing, intolerance of labor. The patient understood the risks, benefits, and alternatives. She was allowed to ask questions. All questions were answered. DESCRIPTION OF PROCEDURE: The patient was taken to the operating room where epidural anesthesia was topped off. She was prepared and draped in supine position with a leftward tilt. She was prepared and draped in the usual sterile fashion. A Pfannenstiel incision was made with a scalpel, carried down to the fascia with the Bovie. The fascia was incised and extended laterally and upwards. The fascia was from the rectus muscle superior and inferiorly. The abdomen was then entered bluntly and pulled upward to expose the bladder reflection. The bladder reflection was noted and the lower uterine incision was made with a scalpel and the incision was extended. The fetus was in vertex position. The fetus was elevated to the level of the incision, fundal pressure was applied, baby was delivered. Nose and mouth were bulb suctioned. The cord was clamped and cut. Infant was handed to the awaiting journalism professor. The cord blood gases were obtained. The uterus was delivered by manual massage at the uterine fundus. The incision was then closed in 2 layers. Once closed in 2 layers, the incision was inspected, it was noted to be hemostatic. The peritoneum was closed with 0 Vicryl. The fascia was then closed with also 0 Vicryl. The subcutaneous fat was approximated and the skin incision was closed with 3-0 Monocryl on a Maxwell needle. All instrument and pad count were correct x2. The patient tolerated the procedure well. ELMA CALVILLO /[id number] SHANTANU
[2018-01-19] MEDS: Docusate Sodium 100 MG Cap PO SCH (09:25)
== END 2018-01-19 13:00 | disposition home or self-care (01) | DRG 766 ==
LOC: MW.OBCHECK 00:46 → MW.OB 00:48 → MW.OBCHECK 01:23 → MW.OB 01:23 → OBSVTOIN 17:47 → MW.OB 01-18 09:05
PROVIDERS: ADMIT Obstetrics & Gynecology; ATTEND Obstetrics & Gynecology
PROC: 10D00Z1 Extraction of Products of Conception, Low, Open Approach (ICD-10-PCS; principal; 2018-01-17)
PROC: 3E0P7VZ Introduction of Hormone into Female Reproductive, Via Natural or Artificial Opening (ICD-10-PCS; 2018-01-17)
PROC: 3E033VJ Introduction of Other Hormone into Peripheral Vein, Percutaneous Approach (ICD-10-PCS; 2018-01-17)
DX: O40.3XX0 Polyhydramnios, third trimester, not applicable or unspecified (principal); O76 Abnormality in fetal heart rate and rhythm complicating labor and delivery; Z3A.39 39 weeks gestation of pregnancy; Z37.0 Single live birth
CPT/HCPCS: 36415; 51702; 59025; 80053; 81001; 81003; 84550; 85014; 85018; 85025; 85027; 86850; 86900; 86901; 88305; A9270-GY; J0131; J0595; J1885; J2250; J2274; J2405; J2590; J2704; J2795; J3010; J3490; J7120